=== PATIENT | male | born 2000 | race Two or more races ===

== ENCOUNTER 2019-10-15 13:07 | Emergency (ER) | payer OTHER ==
[~2019-10-15] VITALS: Ht 167.6 cm; Wt 75.7 kg
[2019-10-15 13:35] VITALS: BP 105/58
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
[2019-10-15] MEDS ORDERED: IBUPROFEN600 M1 ORAL (13:59)
[2019-10-15] MEDS ORDERED: TYLENOL325 MG ORAL (13:59)
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
[2019-10-15 14:10] VITALS: BP 105/58
--- NOTE | 2019-10-15 14:10 | NUR ---
ED Nurse Note: Pt cleared by ERMD for discharge. DC instructions/prescription was given and explained to pt and verbalized understanding of teachings. All medical deviecs such as ID band removed. Pt is AAO x4, ambulatory and left with all personal belongings.
== END 2019-10-15 14:10 | disposition home or self-care (01) ==
LOC: EMR 13:41
DX: S20.222A Contusion of left back wall of thorax, initial encounter (principal); V43.52XA Car driver injured in collision with other type car in traffic accident, initial encounter; Y92.411 Interstate highway as the place of occurrence of the external cause
CPT/HCPCS: 99282